=== PATIENT | female | born 2000 | race Caucasian/White ===

== ENCOUNTER 2023-08-08 14:47 | Emergency (ER) | payer OTHER ==
[~2023-08-08] VITALS: Ht 167.6 cm; Wt 70.0 kg
[2023-08-08 14:54] VITALS: TEMP 98.5
[2023-08-08] MEDS ORDERED: ALBU18HF12 IH (14:54)
[2023-08-08 16:58] VITALS: BP 126/84; PULSE 73; RESP 16
== END 2023-08-08 17:45 | disposition home or self-care (01) ==
LOC: EMS 15:02
DX: S92.352A Displaced fracture of fifth metatarsal bone, left foot, initial encounter for closed fracture (principal); J45.909 Unspecified asthma, uncomplicated; Z98.890 Other specified postprocedural states; Y93.39 Activity, other involving climbing, rappelling and jumping off; Y93.89 Activity, other specified; Y92.89 Other specified places as the place of occurrence of the external cause; Y99.8 Other external cause status
CPT/HCPCS: 29515; 99283